=== PATIENT | male | born 1965 | race Asian ===

== ENCOUNTER 2021-06-12 09:27 | Day surgery (SDC) | payer OTHER ==
[2021-06-08 13:06] VITALS: BMI 25.2
[2021-06-12] MEDS ORDERED: ROPIVACAINE HCL/PF 100 MG/20 ML VIAL ONE (13:14)
[2021-06-12] MEDS ORDERED: MIDAZOLAM HCL 2 MG/2 ML SINGLE DOSE VIAL ONE (13:14)
[2021-06-12] MEDS ORDERED: BUPIVACAINE HCL/EPINEPHRINE/PF 30 ML VIAL IJ ONE (13:17)
[2021-06-12] MEDS ORDERED: PROPOFOL 20 ML ONE (15:01)
[2021-06-12] MEDS ORDERED: PROMETHAZINE HCL 25 MG/1 ML VIAL IVPUSH PRN (16:21)
[2021-06-12] MEDS ORDERED: ACETAMINOPHEN 325 MG TABLET (FP) PO PRN (16:21)
[2021-06-12] MEDS ORDERED: ONDANSETRON 4 MG/2 ML VIAL IVPUSH PRN (16:21)
[2021-06-12] MEDS ORDERED: oxyCODONE HCL 5 MG TABLET PO PRN ×2 (16:21)
[2021-06-12 18:02] VITALS: TEMP 97.6
[2021-06-12 18:26] VITALS: BP 134/78; PULSE 66
== END 2021-06-12 18:29 | disposition home or self-care (01) ==
LOC: FASU 09:27
PROVIDERS: ATTEND Orthopaedic Surgery
PROC: 0RBJ4ZZ Excision of Right Shoulder Joint, Percutaneous Endoscopic Approach (ICD-10-PCS; 2021-06-12)
PROC: 0LQ14ZZ Repair Right Shoulder Tendon, Percutaneous Endoscopic Approach (ICD-10-PCS; principal; 2021-06-12 15:35)
PROC: 0RNJ4ZZ Release Right Shoulder Joint, Percutaneous Endoscopic Approach (ICD-10-PCS; 2021-06-12 15:35)
PROC: 0PB94ZZ Excision of Right Clavicle, Percutaneous Endoscopic Approach (ICD-10-PCS; 2021-06-12 15:35)
DX: M75.121 Complete rotator cuff tear or rupture of right shoulder, not specified as traumatic (principal); M67.813 Other specified disorders of tendon, right shoulder; S43.431A Superior glenoid labrum lesion of right shoulder, initial encounter; X58.XXXA Exposure to other specified factors, initial encounter; Y93.9 Activity, unspecified; Y92.9 Unspecified place or not applicable; M65.811 Other synovitis and tenosynovitis, right shoulder; M75.01 Adhesive capsulitis of right shoulder; M19.011 Primary osteoarthritis, right shoulder
CPT/HCPCS: 94760